=== PATIENT | male | born 1970 | race Caucasian/White ===

== ENCOUNTER 2023-01-13 12:01 | Emergency (ER) | payer BC ==
[2023-01-13] MEDS ORDERED: SODIUM CHLORIDE 0.9% 1,000 ML IV STA (12:21)
[2023-01-13] MEDS ORDERED: KETOROLAC 15 MG/ML 1 ML VIAL IVP STA (12:21)
[2023-01-13] MEDS ORDERED: METOCLOPRAMIDE 5 MG/ML 2 ML VIAL IVP STA (12:21)
--- NOTE | 2023-01-13 12:26 | ED ---
General Adult HPI - General Chief complaint: Abdominal Pain Stated complaint: kidney stone Time Seen by Provider: 01/13/23 12:17 Source: patient, RN notes reviewed Mode of arrival: ambulatory Limitations: no limitations - History of Present Illness Initial comments: Patient is a pleasant 52-year-old male presenting to the emergency department with concern for kidney stone. Patient has a history of 4 previous kidney stones in the past that feel the same as this. Patient does have discomfort left CVA area. Patient states this started Monday and got better. Return for little bit 2 days ago and then returned again this morning. Discomfort was sev ere however now is rated 6.5/10. Patient did have some associated nausea and did vomit. Nausea is only mild at this time. Patient states discomfort has traveled slightly inferior from original onset. - Related Data Home Medications Medication Instructions Recorded Confirmed Ascorbic Acid [Vitamin C] 500 mg PO DAILY 08/15/22 Fish Oil/Dha/Epa [Fish Oil 1,200 1 each PO DAILY 08/15/22 mg Fish Oil] Nf-Blood Pressure Med 1 tab PO DAILY 08/15/22 Red Yeast Rice 600 mg PO DAILY 08/15/22 Vitamin K2 100 mcg PO DAILY 08/15/22 Previous Rx's Medication Instructions Recorded Ketorolac [Toradol] 10 mg PO Q6HR PRN #15 tab 01/13/23 Metoclopramide HCl [Reglan] 10 mg PO Q6HR PRN #15 tablet 01/13/23 Tamsulosin [Flomax] 0.4 mg PO DAILY #14 cap 01/13/23 Allergies Allergy/AdvReac Type Severity Reaction Status Date / Time No Known Allergies Allergy Verified 08/15/22 14:16 Review of Systems ROS Statement: Those systems with pertinent positive or pertinent negative responses have been documented in the HPI. ROS Other: All systems not noted in ROS Statement are negative. Constitutional: Denies: fever Eyes: Denies: eye pain ENT: Denies: ear pain Respiratory: Denies: cough Cardiovascular: Denies: chest pain Endocrine: Denies: fatigue Gastrointestinal: Reports: nausea, vomiting. Denies: abdominal pain Genitourinary: Denies: dysuria Musculoskeletal: Reports: as per HPI Skin: Denies: rash Neurological: Denies: weakness Past Medical History Past Medical History: Hypertension Additional Past Medical History / Comment(s): kidney stones History of Any Multi-Drug Resistant Organisms: None Reported Past Surgical History: No Surgical Hx Reported Smoking Status: Never smoker Past Alcohol Use History: None Reported Past Drug Use History: None Reported General Exam Limitations: no limitations General appearance: alert, in no apparent distress Head exam: Present: normocephalic Eye exam: Present: normal appearance Respiratory exam: Present: normal lung sounds bilaterally Cardiovascular Exam: Present: regular rate, normal rhythm Expanded Peripheral pulses: 2+: Posterior Tibialis (R), Posterior Tibialis (L) GI/Abdominal exam: Present: soft. Absent: tenderness, pulsatile mass Extremities exam: Present: normal inspection. Absent: pedal edema, calf tenderness Back exam: Present: CVA tenderness (L) (Minimal) Neurological exam: Present: alert Psychiatric exam: Present: normal affect, normal mood Skin exam: Present: normal color Course Vital Signs 01/13/23 12:13 Temperature 97.6 F Pulse Rate 66 Respiratory 20 Rate Blood Pressure 189/98 O2 Sat by Pulse 100 Oximetry Medical Decision Making - Medical Decision Making Was pt. sent in by a medical professional or institution (, PA, LOOP TACKER, urgent care, hospital, or senior care...) When possible be specific @ -No Did you speak to anyone other than the patient for history (EMS, parent, family, police, friend...)? What history was obtained from this source @ -No Did you review nursing and triage notes (agree or disagree)? Why? @ -I reviewed and agree with nursing and triage notes Were old charts reviewed (outside hosp., previous admission, EMS record, old EKG, old radiological studies, urgent care reports/EKG's, senior care records)? Report findings @ -No old charts were reviewed Differential Diagnosis (chest pain, altered mental status, abdominal pain women, abdominal pain men, vaginal bleeding, weakness, fever, dyspnea, syncope, headache, dizziness, GI bleed, back pain, seizure, CVA, palpatations, mental health)? @ -Differential Abdominal Pain Men: Appendicitis, cholecystitis, diverticulosis, ischemic bowel, pancreatitis, hepatitis, UTI, gastroenteritis, AAA, incarcerated hernia, bowel obstruction, constipation, inflammatory bowel, hepatitis, peptic ulcer disease, splenic infarction, perforated viscus, testicular torsion, this is not meant to be an all-inclusive list EKG interpreted by me (3pts min.). @ -As above X-rays interpreted by me (1pt min.). @ -kub for ureteral stone on the left CT interpreted by me (1pt min.). @ -None done U/S interpreted by me (1pt. min.). @ -None done What testing was considered but not performed or refused? (CT, X-rays, U/S, labs)? Why? @ -Consider CT however patient does have history of similar symptoms for times previously also associated with kidney stone What meds were considered but not given or refused? Why? @ -None Did you discuss the management of the patient with other professionals (professionals i.e. DrHanane, PA, LOOP TACKER, lab, RT, psych nurse, social sciences instructor, clinical project assistant, teacher, retirement officer, shelter case manager)? Give summary @ -No Was smoking cessation discussed for >3mins.? @ -No Was critical care preformed (if so, how long)? @ -No Were there social determinants of health that impacted care today? How? (Ho melessness, low income, unemployed, alcoholism, drug addiction, transportation, low edu. Level, literacy, decrease access to med. care, detention, rehab)? @ -No Was there de-escalation of care discussed even if they declined (Discuss DNR or withdrawal of care, Hospice)? DNR status @ -No What co-morbidities impacted this encounter? (DM, HTN, Smoking, COPD, CAD, Cancer, CVA, ARF, Chemo, Hep., AIDS, mental health diagnosis, sleep apnea, morbid obesity)? @ -None Was patient admitted / discharged? Hospital course, mention meds given and route, prescriptions, significant lab abnormalities, going to OR and other pertinent info. @ -Patient reevaluated twice. Patient feeling significantly improved following medications. Patient is comfortable with discharge home. Patient is advised neurology follow-up secondary to size of stone Undiagnosed new problem with uncertain prognosis? @ -No Drug Therapy requiring intensive monitoring for toxicity (Heparin, Nitro, Insulin, Cardizem)? @ -No Were any procedures done? @ -No Diagnosis/symptom? @ -Ureterolithiasis Acute, or Chronic, or Acute on Chronic? @ -Acute Uncomplicated (without systemic symptoms) or Complicated (systemic symptoms)? @ -default Side effects of treatment? @ -No Exacerbation, Progression, or Severe Exacerbation? @ -No Poses a threat to life or bodily function? How? (Chest pain, [place], [place], pneumonia, PE, COPD, DKA, ARF, appy, cholecystitis, CVA, Diverticulitis, Homicidal, Suicid al, threat to staff... and all critical care pts) @ -No - Lab Data Result diagrams: 01/13/23 12:28 01/13/23 12: Lab Results 01/13/23 01/13/23 01/13/23 Range/Units 12:28 12: 12:28 WBC 23.8 H (3.8-10.6) k/uL RBC 4.58 (4.30-5.90) m/uL Hgb 14.6 (13.0-17.5) gm/dL Hct 41.7 (39.0-53.0) % MCV 91.0 (80.0-100.0) fL MCH 31.8 (25.0-35.0) pg MCHC 34.9 (31.0-37.0) g/dL RDW 12.4 (11.5-15.5) % Plt Count 246 (150-450) k/uL MPV 7.3 Neutrophils % 89 % Lymphocytes % 5 % Monocytes % 4 % Eosinophils % 1 % Basophils % 0 % Neutrophils # 21.3 H (1.3-7.7) k/uL Lymphocytes # 1.2 (1.0-4.8) k/uL Monocytes # 1.0 (0-1.0) k/uL Eosinophils # 0.2 (0-0.7) k/uL Basophils # 0.0 (0-0.2) k/uL PT 10.2 (9.0-12.0) sec INR 1.0 (<1.2) APTT 23.3 (22.0-30.0) sec Sodium (137-145) mmol/L Potassium (3.5-5.1) mmol/L Chloride (98-107) mmol/L Carbon Dioxide (22-30) mmol/L Anion Gap mmol/L BUN (9-20) mg/dL Creatinine (0.66-1.25) mg/dL Est GFR (CKD-EPI)AfAm (>60 ml/min/1.73 sqM) Est GFR (CKD-EPI)NonAf (>60 ml/min/1.73 sqM) Glucose (74-99) mg/dL Calcium (8.4-10.2) mg/dL Total Bilirubin (0.2-1.3) mg/dL AST (17-59) U/L ALT (4-49) U/L Alkaline Phosphatase (38-126) U/L Total Protein (6.3-8.2) g/dL Albumin (3.5-5.0) g/dL Amylase (30-110) U/L Lipase (23-300) U/L Urine Color Light Yellow Urine Appearance Clear (Clear) Urine pH 6.5 (5.0-8.0) Ur Specific [place] 1.008 (1.001-1.035) Urine Protein Negative (Negative) Urine Glucose (UA) Negative (Negative) Urine Ketones Negative (Negative) Urine Blood Large H (Negative) Urine Nitrite Negative (Negative) Urine Bilirubin Negative (Negative) Urine Urobilinogen <2.0 (<2.0) mg/dL Ur Leukocyte Esterase Negative (Negative) Urine RBC 35 H (0-5) /hpf Urine WBC 1 (0-5) /hpf Hyaline Casts 1 (0-2) /lpf Urine Mucus Rare H (None) /hpf 01/13/23 Range/Units 12:28 WBC (3.8-10.6) k/uL RBC (4.30-5.90) m/uL Hgb (13.0-17.5) gm/dL Hct (39.0-53.0) % MCV (80.0-100.0) fL MCH (25.0-35.0) pg MCHC (31.0-37.0) g/dL RDW (11.5-15.5) % Plt Count (150-450) k/uL MPV Neutrophils % % Lymphocytes % % Monocytes % % Eosinophils % % Basophils % % Neutrophils # (1.3-7.7) k/uL Lymphocytes # (1.0-4.8) k/uL Monocytes # (0-1.0) k/uL Eosinophils # (0-0.7) k/uL Basophils # (0-0.2) k/uL PT (9.0-12.0) sec INR (<1.2) APTT (22.0-30.0) sec Sodium 136 L (137-145) mmol/L Potassium 3.9 (3.5-5.1) mmol/L Chloride 103 (98-107) mmol/L Carbon Dioxide 23 (22-30) mmol/L Anion Gap 10 mmol/L BUN 18 (9-20) mg/dL Creatinine 0.96 (0.66-1.25) mg/dL Est GFR (CKD-EPI)AfAm >90 (>60 ml/min/1.73 sqM) Est GFR (CKD-EPI)NonAf >90 (>60 ml/min/1.73 sqM) Glucose 118 H (74-99) mg/dL Calcium 9.4 (8.4-10.2) mg/dL Total Bilirubin 0.6 (0.2-1.3) mg/dL AST 31 (17-59) U/L ALT 31 (4-49) U/L Alkaline Phosphatase 68 (38-126) U/L Total Protein 7.6 (6.3-8.2) g/dL Albumin 4.3 (3.5-5.0) g/dL Amylase 72 (30-110) U/L Lipase 84 (23-300) U/L Urine Color Urine Appearance (Clear) Urine pH (5.0-8.0) Ur Specific [place] (1.001-1.035) Urine Protein (Negative) Urine Glucose (UA) (Negative) Urine Ketones (Negative) Urine Blood (Negative) Urine Nitrite (Negative) Urine Bilirubin (Negative) Urine Urobilinogen (<2.0) mg/dL Ur Leukocyte Esterase (Negative) Urine RBC (0-5) /hpf Urine WBC (0-5) /hpf Hyaline Casts (0-2) /lpf Urine Mucus (None) /hpf Disposition Clinical Impression: Ureterolithiasis Disposition: HOME SELF-CARE Condition: Stable Instructions (If sedation given, give patient instructions): Kidney Stones (ED) Additional Instructions: Please do follow-up with your primary care physician in the next couple days for recheck. Please do follow-up with urology, number provided. Prescriptions have been sent to pharmacy. Return for fever, increased pain, uncontrolled vomiting, worsening or change in symptoms or other concerns. Prescriptions: Tamsulosin [Flomax] 0.4 mg PO DAILY #14 cap Metoclopramide HCl [Reglan] 10 mg PO Q6HR PRN #15 tablet PRN Reason: Nausea Ketorolac [Toradol] 10 mg PO Q6HR PRN #15 tab PRN Reason: Pain Is patient prescribed a controlled substance at d/c from ED?: No Referrals: Jasbir Prince MD [Primary Care Provider] - 1-2 days Time of Disposition: 13:48
[2023-01-13 12:45] LABS: Basophils % (A) 0 %; Eosinophils # (A) 0.2 k/uL (0-0.7); Eosinophils % (A) 1 %; HCT 41.7 % (39.0-53.0); HGB 14.6 gm/dL (13.0-17.5); Lymphocytes # (A) 1.2 k/uL (1.0-4.8); Lymphocytes % (A) 5 %; MCH 31.8 pg (25.0-35.0); MCHC 34.9 g/dL (31.0-37.0); Mean Platelet Volume 7.3; Monocytes % (A) 4 %; Neutrophils # (A) 21.3 k/uL (1.3-7.7); Neutrophils % (A) 89 %; Platelet Count 246 k/uL (150-450); RBC 4.58 m/uL (4.30-5.90); RDW 12.4 % (11.5-15.5); WBC 23.8 k/uL (3.8-10.6)
--- NOTE | 2023-01-13 12:54 | XR ---
EXAMINATION TYPE: XR KUB DATE OF EXAM: 01/13/2023 12:48 PM CLINICAL HISTORY: Abdominal pain. Left-sided kidney stone. TECHNIQUE: Two Upright KUB images of the abdomen are obtained. COMPARISON: None. FINDINGS: Gas seen in nondistended stomach. Some paucity of bowel gas. Scattered gas seen in nondiste nded small and large bowel loops. No free air. Roughly 8 mm calcification projects over the left L3 t ransverse process likely at UPJ or proximal ureter level. The lung bases are clear. Some multilevel s purring in the upper to mid lumbar spine is seen. IMPRESSION: As above.
[2023-01-13 13:07] LABS: ALT 31 U/L (4-49); AST 31 U/L (17-59); African American GFR (CKD) >90 (>60 ml/min/1.73 sqM); Albumin 4.3 g/dL (3.5-5.0); Alkaline Phosphatase 68 U/L (38-126); Amylase 72 U/L (30-110); Anion Gap 10 mmol/L; Blood Urea Nitrogen 18 mg/dL (9-20); Calcium 9.4 mg/dL (8.4-10.2); Carbon Dioxide 23 mmol/L (22-30); Chloride 103 mmol/L (98-107); Glucose 118 mg/dL (74-99); Lipase 84 U/L (23-300); Non-African American GFR(CKD) >90 (>60 ml/min/1.73 sqM); Potassium 3.9 mmol/L (3.5-5.1); Sodium 136 mmol/L (137-145); Total Bilirubin 0.6 mg/dL (0.2-1.3); Total Protein 7.6 g/dL (6.3-8.2)
[2023-01-13 13:09] LABS: Partial Thromboplastin Time 23.3 sec (22.0-30.0); Prothrombin Time 10.2 sec (9.0-12.0)
[2023-01-13 13:26] LABS: Appearance,Urine Clear (Clear); Bilirubin,Urine Negative (Negative); Blood,Urine Large (Negative); Color,Urine Light Yellow; Glucose,Urine (UA) Negative (Negative); Hyaline Casts,Urine 1 /lpf (0-2); Ketones,Urine Negative (Negative); Leukocyte Esterase,Urine Negative (Negative); Mucus,Urine Rare /hpf; Nitrite,Urine Negative (Negative); PH, Urine 6.5 (5.0-8.0); Protein,Urine Negative (Negative); RBC,Urine 35 /hpf (0-5); Specific Gravity,Urine 1.008 (1.001-1.035); Urobilinogen,Urine <2.0 mg/dL (<2.0); WBC,Urine 1 /hpf (0-5)
[2023-01-13 14:22] VITALS: BP 146/96; PULSE 86; RESP 18; TEMP 97.7
== END 2023-01-13 14:15 | disposition home or self-care (01) ==
LOC: EC 12:01
DX: N20.2 Calculus of kidney with calculus of ureter (principal); I10 Essential (primary) hypertension
CPT/HCPCS: 36415; 80053; 82150; 83690; 85025; 85610; 85730; 81001; 74018; 99284; 96374; 96375; 96361; J2765; J1885

== ENCOUNTER 2023-01-30 09:00 | Day surgery (SDC) | payer BC ==
[2023-01-26 10:46] VITALS: BMI 31.1
--- NOTE | 2023-01-29 15:51 | P.GSHP ---
History of Present Illness H&P Date: 01/29/23 52 yo male with a history of stones has a 7 mm proximal left ureteral stone with pain.. HE comes for a left eswl. the risks, complications and alternatives have been discussed. He comes for this procedure. - Constitutional Constitutional: Denies chills, Denies fever - EENT Eyes: denies blurred vision, denies pain Ears, nose, mouth and throat: Denies headache, Denies sore throat - Cardiovascular Cardiovascular: Denies chest pain, Denies shortness of breath - Respiratory Respiratory: Denies cough, Denies 7 - Gastrointestinal Gastrointestinal: Denies abdominal pain, Denies diarrhea, Denies nausea, Denies vomiting - Genitourinary (Female) Genitourinary: Denies dysuria, Denies hematuria - Genitourinary (Male) Genitourinary: Denies dysuria, Denies hematuria - Musculoskeletal Musculoskeletal: Denies myalgias - Integumentary Integumentary: Denies pruritus, Denies rash - Neurological Neurological: Denies numbness, Denies weakness - Psychiatric Psychiatric: Denies anxiety, Denies depression - Endocrine Endocrine: Denies fatigue, Denies weight change Past Medical History Past Medical History: Hypertension Additional Past Medical History / Comment(s): kidney stones History of Any Multi-Drug Resistant Organisms: None Reported Past Surgical History: No Surgical Hx Reported Additional Past Surgical History / Comment(s): FISH BONE REMOVAL-THROAT Past Anesthesia/Blood Transfusion Reactions: No Reported Reaction Additional Past Anesthesia/Blood Transfusion Reaction / Comment(s): PROBLEMS WITH DIFFICULT IV START ONE TIME IN HIS 30"S, BUT SINCE THEN HIS LAST PROCEDURE WENT FINE Smoking Status: Never smoker - Past Family History Mother Family Medical History: No Reported History Medications and Allergies Home Medications Medication Instructions Recorded Confirmed Type Lisinopril-Hctz 20-25 mg 1 tab PO DAILY 01/26/23 01/26/23 History [Zestoretic 20-25] Allergies Allergy/AdvReac Type Severity Reaction Status Date / Time No Known Allergies Allergy Verified 01/26/23 10:35 Surgical - Exam - General well developed, well nourished, no distress - Eyes normal ocular movement, no icteric - ENT no hearing loss, no congestion - Neck no masses, trachea midline - Respiratory normal respiratory effort, clear to auscultation - Abdomen Abdomen: soft, non tender, no guarding, no rigid, no rebound - Integumentary no rash, no abnormal pigmentation - Neurologic no disoriented, no combative - Psychiatric oriented to time, oriented to person, oriented to place, speech is normal, memory intact Results - Imaging Abdominal x-ray: report reviewed, image reviewed Assessment and Plan Assessment: Impression: left ureteral stone Plan: ESWL left
--- NOTE | 2023-01-30 09:36 | XR ---
KUB HISTORY: Kidney stones COMPARISON: 01/13/2023. TECHNIQUE: Single supine view of the abdomen and pelvis is obtained. FINDINGS: There is an 8.5 mm calcification which could lie within the course of the proximal to mid left ureter at the L3-4 level. Was seen previously. No new calcifications are seen. The bowel gas pattern is nonspecific and there is no evidence of obstruction. The osseous structures are intact. IMPRESSION: No change in calcification of the left L3-4 disc space which could lie within the proximal to mid lef t ureter
[2023-01-30 09:50] VITALS: TEMP 97.9
[2023-01-30] MEDS ORDERED: LACTATED RINGERS 1,000 ML IV ONE (09:50)
[2023-01-30] MEDS ORDERED: FUROSEMIDE 10 MG/ML 2 ML VIAL ONE (10:27)
[2023-01-30] MEDS ORDERED: MIDAZOLAM 2 MG/2 ML VIAL ONE (10:27)
[2023-01-30] MEDS ORDERED: PROPOFOL 10 MG/ML 20 ML VIAL IV ONE (10:27)
[2023-01-30] MEDS ORDERED: fentaNYL (PF) 50 MCG/ML 2 ML AMP ONE (10:27)
[2023-01-30] MEDS ORDERED: KETAMINE 10 MG/ML 20 ML VIAL ONE (10:27)
--- NOTE | 2023-01-30 11:00 | P.OP ---
Date of Procedure: 01/30/23 Preoperative Diagnosis: Left ureteral stone Postoperative Diagnosis: Same Procedure(s) Performed: Extracorporeal shockwave lithotripsy left, 2500 shocks at energy level IV Anesthesia: MAC Surgeon: Avila Pisano Pathology: none sent Condition: stable Disposition: PACU Indications for Procedure: The patient is 52. His an 8 mm left midureteral stone. He comes for left shockwave lithotripsy Description of Procedure: Patient was brought to the operating suite. He is given IV sedation on the lithotripsy table. The left mid ureteral stone is seen in 2 views of fluoroscopy. 2500 shocks at energy level IV administered with the compact delta2 2 lithotripter. The stone fractures nicely. 10 mg of Lasix was administered. The procedure the patient was awakened and returned recovery room in good condition. He'll be discharged home upon recovery.
[2023-01-30 11:32] VITALS: BP 150/90; PULSE 53; RESP 16
== END 2023-01-30 11:52 | disposition home or self-care (01) ==
LOC: ORWHC2ENDO 09:00
PROVIDERS: ATTEND Urology
DX: N20.1 Calculus of ureter (principal); I10 Essential (primary) hypertension; Z98.890 Other specified postprocedural states; Z87.442 Personal history of urinary calculi; Z79.899 Other long term (current) drug therapy
CPT/HCPCS: 82365; 74018; 50590; J2250; J1940; J3010; J2704

== ENCOUNTER → 2023-02-07 | Outpatient (CLI) | payer BC ==
--- NOTE | 2023-02-07 09:56 | XR ---
EXAMINATION TYPE: XR KUB DATE OF EXAM: 02/07/2023 7:43 AM INDICATION: Patient age:Male; 52 years old; Reason for study: N20.1 Ureteral Calculus; COMPARISON: 01/30/2023 TECHNIQUE: One radiographic view of the abdomen was obtained. FINDINGS: Calcific lesion seen on prior on 01/30/2023 at the L3-L4 left disc space is not definitively visualized. The bowel gas pattern is nonspecific without dilated loops of small or large bowel. Ther e is no evidence for organomegaly or pneumoperitoneum. The osseous structures are intact. No abnorm al calcifications are present. Fecal material and gas are demonstrated throughout the colon and rectu m. Multilevel degeneration changes of the spine and mild degeneration changes of the hips. IMPRESSION: Metastatic calcification not definitively visualized at the level of L3-L4. Unclear whether this calc ification is. Consider CT renal stone protocol. Correlate for history of passing stone.
== END | disposition home or self-care (01) ==
LOC: RADXRMAIN 07:27
PROVIDERS: ATTEND Urology
DX: N20.1 Calculus of ureter (principal)
CPT/HCPCS: 74018

== ENCOUNTER → 2025-01-31 | Outpatient (CLI) | payer BC ==
--- NOTE | 2025-02-03 17:03 | MR ---
EXAMINATION TYPE: MR abdomen wo/w con DATE OF EXAM: 01/31/2025 7:01 PM INDICATION: Patient age:Male; 54 years old; Reason for study: N28.1 CYST OF KIDNEY, ACQUIRED; [facility]. COMPARISON: Outside institution MR abdomen 06/03/2024, outside institution CT chest abdomen and pelvis 05/16/2024 TECHNIQUE: Multiplanar multi-sequence imaging was performed without and with IV contrast. The patie nt was given 9.5 ccs of Gadavist intravenously and dynamic imaging was performed. Post IV contrast montano btraction images were also submitted for review. FINDINGS: LOWER CHEST: No gross irregularity. ABDOMEN Liver: Noncirrhotic morphology. Enlarged measuring 20.2 cm in CC dimension. Diffuse dropout of signal on out of phase imaging consistent with fatty infiltration. Gallbladder and Bile ducts: Few small gallstones identified. No wall thickening or surrounding fluid. No biliary duct dilatation. No evidence for choledocholithiasis. Pancreas: Unremarkable. Spleen: Unremarkable. Adrenal glands: Right adrenal gland is unremarkable. Left adrenal gland 2.1 cm lesion redemonstrated which demonstrates dropout of signal on out of phase imaging consistent with a benign lipid rich casey za. Kidneys: No hydronephrosis. Redemonstration of a hyperintense T1/hypointense T2 lesion within the med ial aspect of the left kidney measuring up to 1.9 cm. No enhancement identified on postcontrast subtr action imaging. Additional few T1 weighted intrinsic nonenhancing hyperintense subcentimeter foci wit hin the right kidney most consistent with proteinaceous/hemorrhagic cysts again. Redemonstration of 5.8 cm left mid kidney thin-walled T2 hyperintense cyst without enhancement or mur al nodularity. Additional bilateral small thin wall nonenhancing T2 hyperintense simple appearing cys ts redemonstrated. Stomach and Bowel: No evidence of bowel obstruction. Distal colonic diverticulosis without evidence f or acute diverticulitis. Peritoneum: No evidence of pneumoperitoneum, free fluid, or adenopathy. Vasculature: Unremarkable. No aortic aneurysm. Abdominal wall: Unremarkable. Musculoskeletal: The osseous structures appear intact. IMPRESSION: 1. Stable left renal nonenhancing intrinsic T1 hyperintense lesion most consistent with a proteinace ous/hemorrhagic cyst. Additional few right renal stable subcentimeter proteinaceous/hemorrhagic cysts . No follow-up recommended. 2. Stable bilateral nonenhancing renal simple cysts. No follow-up recommended. 3. Stable left adrenal lipid rich adenoma. 4. Cholelithiasis. [facility], , 02/03/2025 5:00 PM
== END | disposition home or self-care (01) ==
LOC: RADMRIMAIN 18:07
PROVIDERS: ATTEND Urology
DX: K80.20 Calculus of gallbladder without cholecystitis without obstruction (principal); N28.1 Cyst of kidney, acquired; D35.02 Benign neoplasm of left adrenal gland
CPT/HCPCS: 74183; A9585